=== PATIENT | female | born 1970 | race Caucasian/White ===

== ENCOUNTER 2024-05-18 18:28 | Emergency (ER) | payer BC, SELFPAY ==
--- NOTE | ~2024-05-18 | XR_ITS ---
Portable chest x-ray Comparison: None Clinical History: Syncope Findings: Lungs are clear, without focal consolidation or pleural effusion. Cardiomediastinal silho uette is unremarkable. Bones and soft tissues are unremarkable. Impression: Normal chest. Reviewed, dictated and finalized at location . [employer] Impression: Normal chest.
[2024-05-18 18:29] VITALS: BP 115/67; PULSE 84; RESP 14; O2SAT 100
[2024-05-18 20:32] LABS: Basophils Percent Auto 0.3 % (0.2-1.2); Eosinophils Absolute Auto 0.1 K/mm3 (0-0.3); Eosinophils Percent Auto 0.4 % (0-4.4); Hematocrit 47.2 % (37.0-47.0); Hemoglobin 15.6 g/dL (12.0-15.0); Immature Granulocyte Absolute 0.03 K/mm3 (0.00-0.031); Immature Granulocyte Percent A 0.3 % (0-0.5); Lymphocytes Percent Auto 12.2 % (18.3-44.2); Mean Corpuscular HGB Conc 33.1 g/dl (32-36); Mean Corpuscular Hemoglobin 28.5 pg (26-34); Mean Corpuscular Volume 86.3 fl (80-100); Mean Platelet Volume 10.6 fl (7.4-10.4); Monocytes Absolute Auto 0.4 K/mm3 (0.1-0.6); Monocytes Percent Auto 3.6 % (2.6-8.5); Neutrophils Absolute Auto 9.5 K/mm3 (1.3-6.7); Neutrophils Percent Auto 83.2 % (45.5-73.1); Platelet Count Result 239 k/mm3 (150-375); Red Blood Count 5.47 M/mm3 (4.2-5.4); Red Cell Distribution Width 12.6 % (11.5-14.5); White Blood Count 11.5 K/mm3 (4.5-10.0)
[2024-05-18 20:45] LABS: Alanine Aminotransferase 46 U/L (6-35); Albumin Level 4.5 g/dL (3.5-5.1); Alkaline Phosphatase 99 U/L (38-126); Anion Gap 9 mmol/L (4-12); Aspartate Amino Transferase 40 U/L (14-36); Bilirubin,Total 0.5 mg/dL (0.2-1.3); Blood Urea Nitrogen 18 mg/dL (7-17); Calcium 9.9 mg/dL (8.4-10.2); Carbon Dioxide 29 mmol/L (22-30); Chloride 100 mmol/L (98-107); Estimated CRCL calculation 48 ml/min; Estimated Glomerular Filt Rate 52; Glucose 125 mg/dL (65-110); Lipase 84 U/L (23-300); Potassium 4.4 mmol/L (3.4-5.0); Sodium 138 mmol/L (137-145)
[2024-05-18 21:55] LABS: Add Urine Microscopic? YES; Appearance Urine Clear (Clear); Bacteria Urine None Seen /hpf; Bilirubin Urine Negative (Negative); Blood Urine Negative (Negative); Color Urine Yellow (Yellow); Glucose Urine UA Negative (Negative); Ketones Urine Trace mg/dL (Negative); Leukocyte Esterase Ur Negative LEU/UL (Negative); Nitrate Urine Negative (Negative); Protein Urine 1+ mg/dL (Negative); RBC Urine 0-2 /hpf (0-2); Specific Grav Ur 1.028 (1.001-1.035); Squamous Epithelial Cell Urine None Seen /hpf (Few); WBC Urine 0-5 /hpf (0-3)
[2024-05-18 22:37] LABS: Lactic Acid Reflex 1.3 mmol/L (0.7-2.0)
[2024-05-18 22:37] LABS: Magnesium 2.1 mg/dL (1.6-2.3)
[2024-05-18 22:50] LABS: Troponin I < 0.012 ng/mL (0.000-0.034)
--- NOTE | 2024-05-18 23:00 | ED_ITS ---
HPI - General Adult General Chief complaint: Nausea/Vomiting/Diarrhea Stated complaint: i feel sick Time Seen by Provider: 05/18/24 21:15 History of Present Illness HPI narrative: patient is a 53-year-old female who presents emergency department chief complaint of near-syncope. Patient reports that she was at a nail salon got very hot diaphoretic and started vomiting. The patient reports she was given Zofran prior to arrival and reports that she started to feel better at this poin t the patient denies abdominal pain denies syncope reports no chest pain or shortness of breath. Related Data Home Medications Medication Instructions Recorded Confirmed cetirizine 10 mg tablet (Zyrtec) 10 mg PO DAILY 10/18/23 escitalopram oxalate 20 mg tablet 20 mg PO DAILY 10/18/23 estradiol-norethindrone acet 1 1 tablet PO DAILY 10/18/23 mg-0.5 mg tablet (Activella) lisinopril 20 mg tablet 20 mg PO DAILY 10/18/23 pantoprazole 40 mg tablet,delayed 40 mg PO DAILY 10/18/23 release Allergies Allergy/AdvReac Type Severity Reaction Status Date / Time No Known Allergies Allergy Unknown Verified 10/18/23 10:32 Review of Systems Review of Systems: A 10 system review of systems was completed on the patient and is negative except for what is stated in the HPI. Nursing and ancillary documentation was reviewed. [facility] Social History Social History Smoking status: Never smoker Alcohol intake: never Substance use: never Substance use type: does not use Living arrangements: with family Spiritual care concerns: No Exam Narrative: GENERAL: Well-appearing, well-nourished, and in no acute distress. HEAD: Normocephalic, atraumatic. EYES: PERRLA and EOMI. ENT: Nares clear, no rhinorrhea or epistaxis. Mucous membranes moist. NECK: Supple. CHEST: Clear to auscultation. No respiratory distress. HEART: Regular rate and rhythm. No murmur heard. Normal peripheral pulses. ABDOMEN: Soft, nontender, nondistended, normal active bowel sounds. EXTREMITIES: Normal range of motion. No edema. SKIN: Warm, dry, no rash. NEURO: No focal deficits. Alert and oriented x3. PSYCH: Normal mood and affect. Course Vital Signs Vital signs: Vital Signs Pulse Rate 84 05/18/24 18:29 Respiratory Rate 14 05/18/24 18:29 Blood Pressure 115/67 05/18/24 18:29 Pulse Oximetry 100 05/18/24 18:29 Pulse Rate 82 05/19/24 00:31 Respiratory Rate 16 05/19/24 00:31 Blood Pressure 133/90 05/19/24 00:31 Pulse Oximetry 97 05/19/24 00:31 Medical Decision Making MDM Narrative Medical decision making narrative: differential diagnosis includes dehydration, near syncope, vasovagal syncope, dehydration electrolyte abnormality laboratory studies were obtained on the patient showed a creatinine 1.1 BUN of 18 CBC showed a hemoglobin of 15.6 urinalysis showed no evidence UTI chest x-ray showed no focal infiltrate patient received IV fluids by a EMS and is feeling much better at this point Vital Signs Vital Signs: Vital Signs Pulse Rate 84 05/18/24 18:29 Respiratory Rate 14 05/18/24 18:29 Blood Pressure 115/67 05/18/24 18:29 Pulse Oximetry 100 05/18/24 18:29 Pulse Rate 82 05/19/24 00:31 Respiratory Rate 16 05/19/24 00:31 Blood Pressure 133/90 05/19/24 00:31 Pulse Oximetry 97 05/19/24 00:31 Lab Data 05/18/24 20:19 05/18/24 20:19 Labs: Lab Results 05/18/24 05/18/24 05/18/24 Range/Units 20:19 21:39 22:23 WBC 11.5 H (4.5-10.0) K/mm3 RBC 5.47 H (4.2-5.4) M/mm3 Hgb 15.6 H (12.0-15.0) g/dL Hct 47.2 H (37.0-47.0) % MCV 86.3 (80-100) fl MCH 28.5 (26-34) pg MCHC 33.1 (32-36) g/dl RDW 12.6 (11.5-14.5) % Plt Count 239 (150-375) k/mm3 MPV 10.6 H (7.4-10.4) fl Immature Gran % (Auto) 0.3 (0-0.5) % Neut % (Auto) 83.2 H (45.5-73.1) % Lymph % (Auto) 12.2 L (18.3-44.2) % [place] % (Auto) 3.6 (2.6-8.5) % Eos % (Auto) 0.4 (0-4.4) % Baso % (Auto) 0.3 (0.2-1.2) % Lymph # (Auto) 1.40 (0.9-3.2) K/mm3 [place] # (Auto) 0.4 (0.1-0.6) K/mm3 Eos # (Auto) 0.1 (0-0.3) K/mm3 Baso # (Auto) 0.0 (0.0-0.1) K/mm3 Abs Immat Gran (auto) 0.03 (0.00-0.031) K/mm3 Absolute Neuts (auto) 9.5 H (1.3-6.7) K/mm3 Absolute Nucleated RBC 0.000 (0.0-0.012) K/mm3 Nucleated RBC % 0.0 (0.0-0.2) % Sodium 138 (137-145) mmol/L Potassium 4.4 (3.4-5.0) mmol/L Chloride 100 (98-107) mmol/L Carbon Dioxide 29 (22-30) mmol/L Anion Gap 9 (4-12) mmol/L BUN 18 H (7-17) mg/dL Creatinine 1.10 H (0.7-1.0) mg/dL Estim Creat Clear Calc 48 ml/min Estimated GFR 52 L (59 - ) Glucose 125 H (65-110) mg/dL Lactic Acid 1.3 (0.7-2.0) mmol/L Calcium 9.9 (8.4-10.2) mg/dL Magnesium 2.1 (1.6-2.3) mg/dL Total Bilirubin 0.5 (0.2-1.3) mg/dL AST 40 H (14-36) U/L ALT 46 H (6-35) U/L Alkaline Phosphatase 99 (38-126) U/L Troponin I < 0.012 (0.000-0.034) ng/mL Total Protein 8.0 (6.3-8.2) g/dL Albumin 4.5 (3.5-5.1) g/dL Lipase 84 (23-300) U/L Urine Color Yellow (Yellow) Urine Appearance Clear (Clear) Urine pH 6.0 (5.0-9.0) Ur Specific [place] 1.028 (1.001-1.035) Urine Protein 1+ H (Negative) mg/dL Urine Glucose (UA) Negative (Negative) mg/dL Urine Ketones Trace H (Negative) mg/dL Ur Blood (Man) Negative (Negative) Urine Nitrate Negative (Negative) Urine Bilirubin Negative (Negative) Urine Urobilinogen 1.0 (<2.0) mg/dL Leukocyte Esterase Rfl Negative (Negative) AZ/UL Urine RBC 0-2 (0-2) /hpf Urine WBC 0-5 (0-3) /hpf Ur Squamous Epith Cells None seen (Few) /hpf Urine Bacteria None seen /hpf Urine Casts 3-5 Discharge Plan Discharge Clinical Impression: Near syncope Patient Disposition: Home, Self-Care Condition: Stable Instructions: Antibiotic Form, Near Syncope (ED) Prescriptions: No Action cetirizine [Zyrtec] 10 mg Tablet 10 mg PO DAILY lisinopril 20 mg tablet 20 mg PO DAILY estradiol-norethindrone acet [Activella] 1-0.5 mg tablet 1 tablet PO DAILY pantoprazole 40 mg tablet,delayed release (DR/EC) 40 mg PO DAILY escitalopram oxalate 20 mg tablet 20 mg PO DAILY Follow-up/Referrals: Kameron,Sher Santiago MD [Primary Care Provider] - Time of Disposition: 00:34
[2024-05-19 00:31] VITALS: BP 133/90; PULSE 82; RESP 16; O2SAT 97
[2024-05-19 00:46] VITALS: BP 133/90; PULSE 81; RESP 17; TEMP 36.7; O2SAT 100
[2024-05-20 10:04] LABS: BEDSIDEPREGUCG Negative (Negative)
== END 2024-05-19 00:48 | disposition home or self-care (01) ==
PROVIDERS: Emergency Provider Emergency Medicine; PCP Internal Medicine
DX: R55 Syncope and collapse (principal)
CPT/HCPCS: 36415; 71045; 80053; 81001; 81025; 83605; 83690; 83735; 84484; 85025; 99284